=== PATIENT | male | born 1965 | race African-American/Black ===

== ENCOUNTER 2019-05-24 11:54 | Inpatient (IN) | payer OTHER ==
[2019-05-24 12:33] VITALS: BMI 25.9
--- NOTE | 2019-05-24 12:51 | HP ---
CIWA Score - Admission Criteria [facility] Guidelines: Admission for Medically Managed Detox: Requires at least one of the followin. CIWA greater than 12 2. Seizures within the past 24 hours 3. Delirium tremens within the past 24 hours 4. Hallucinations within the past 24 hours 5. Acute intervention needed for co occurring medical disorder 6. Acute intervention needed for co occurring psychiatric disorder 7. Severe withdrawal that cannot be handled at a lower level of care (continued vomiting, continued diarrhea, abnormal vital signs) requiring intravenous medication and/or fluids 8. Admitting History and Physical - Admission Chief Complaint: I was here yesterday and they did not have a rehab bed for me yesterday. History of Present Illness: 53 year old male with history of cannabis and cocaine use disorder, and alcohol use disorder. He has been in outpatient program, last one was [facility]. pt here for cocaine and cannabis use , reports 600 $ in 2 days , use daily x 18 months cannabis daily since age 19 tobacco : denies , quit 6 years ago etoh: 3 beers /day , denies blackouts , seizures , tremors , denies symptoms He has a plant operations manager that follows him regularly, monthly. He has implanted defibrillator and prior [place] due to LAD blockage. History Source: Patient Limitations to Obtaining History: No Limitations - Past Medical History Endocrine: Yes: Diabetes Mellitus Additional Past Medical History: CAD with 1 stent placed and defibrillator implanted 2 years later due to arrhythmia. - Past Surgical History Additional Past Surgical History: implanted defibrillator - Advance Directives Advance Directives: No: Living Will, Health Care Proxy, DNR - Smoking History Smoking history: Former smoker Have you smoked in the past 12 months: No - Alcohol/Substance Use Hx Alcohol Use: Yes (1-5 beers daily) Number of Drinks Daily: 5 Date of Last Use: 05/23/19 - Social History Usual Living Arrangement: Yes: Alone Do you think of yourself as: Straight/Heterosexual ADL: Independent Occupation: disabled and social security History of Recent Travel: No Admission [facility] Allergies/Adverse Reactions: Allergies Allergy/AdvReac Type Severity Reaction Status Date / Time No Known Allergies Allergy Verified 05/24/19 12:20 Exam Limitations: No Limitations - Ebola screening Have you traveled outside of the country in the last 21 days: No (N) Have you had contact with anyone from an Ebola affected area: No Have you been sick,other than usual withdrawal symptoms: No Do you have a fever: No - Review of Systems Constitutional: No Symptoms Reported EENT: reports: No Symptoms Reported Respiratory: reports: No Symptoms reported Cardiac: reports: No Symptoms Reported GI: reports: No Symptoms Reported : reports: No Symptoms Reported Musculoskeletal: reports: No Symptoms Reported Integumentary: reports: No Symptoms Reported Neuro: reports: No Symptoms reported Endocrine: reports: No Symptoms Reported Hematology: reports: No Symptoms Reported Psychiatric: reports: Judgement Intact, Mood/Affect Appropiate, Orientated x3 Other Systems: Reviewed and Negative Patient History - Patient Medical History Hx Anemia: No Hx Asthma: No Hx Chronic Obstructive Pulmonary Disease (COPD): No Hx Cancer: No Hx Cardiac Disorders: Yes (CAD with prior IN) Hx Congestive Heart Failure: No Hx Hypertension: No Hx Hypercholesterolemia: No Hx Pacemaker: No HX Cerebrovascular Accident: No Hx Seizures: No Hx Dementia: No Hx Diabetes: Yes Hx Gastrointestinal Disorders: No Hx Liver Disease: No Hx Genitourinary Disorders: No Hx Sexually Transmitted Disorders: No Hx Renal Disease (ESRD): No Hx Thyroid Disease: No Hx Human Immunodeficiency Virus (HIV): No Hx Hepatitis C: No Hx Depression: No Hx Suicide Attempt: No Hx Bipolar Disorder: No Hx Schizophrenia: No - Patient Surgical History Past Surgical History: No - PPD History Previous Implant?: Yes Documented Results: Negative w/proof Date: 05/18/17 Results: negative PPD to be Administered?: Yes - Smoking Cessation Smoking history: Former smoker Have you smoked in the past 12 months: No Hx Chewing Tobacco Use: No Initiated information on smoking cessation: No - Substances abused Alcohol Substance route: Oral Frequency: Daily Amount used: (3) 40oz. beer & 1/2 pint of vodka Age of first use: 13 Date of last use: 05/22/19 Crack Substance route: Smoking Frequency: Daily Amount used: $50 Age of first use: 52 Date of last use: 05/22/19 Marijuana/Hashish Substance route: Smoking Frequency: Daily Amount used: $20 Age of first use: 12 Date of last use: 05/22/19 Admission Physical Exam BHS - Vital Signs Vital Signs: Vital Signs - 24 hr 05/24/19 12:20 Temperature 98.2 F Pulse Rate 82 Respiratory 18 Rate Blood Pressure 104/63 - Physical General Appearance: Yes: No Apparent Distress HEENTM: Yes: EOMI, Hearing grossly Normal, Normal ENT Inspection, Normocephalic , Normal Voice, ROBERTO, Pharynx Normal, Tm's normal Respiratory: Yes: Chest Non-Tender, Lungs Clear, Normal Breath Sounds, No Respiratory Distress, No Accessory Muscle Use Neck: Yes: No masses,lesions,Nodules, Supple, Trachea in good position Breast: Yes: Within Normal Limits Cardiology: Yes: Regular Rhythm, Regular Rate, S1, S2 Abdominal: Yes: Normal Bowel Sounds, Non Tender, Flat, Soft Genitourinary: Yes: Within Normal Limits Back: Yes: Normal Inspection Musculoskeletal: Yes: full range of Motion, Gait Steady, Pelvis Stable Extremities: Yes: Normal Capillary Refill, Normal Inspection, Normal Range of Motion, Non-Tender Neurological: Yes: statement clerk II-XII NML intact, Fully Oriented, Alert, Motor Strength 5/5, Normal Mood/Affect, Normal Response Integumentary: Yes: Normal Color, Warm Lymphatic: Yes: Within Normal Limits - Diagnostic (1) Alcohol use disorder Current Visit: Yes Status: Acute (2) Cannabis dependence Current Visit: Yes Status: Chronic (3) Cocaine use Current Visit: Yes Status: Chronic Cleared for Admission S - Detox or Rehab [facility] Level of Care: Medically Supervised Screened but not Admitted - Documentation of Visit Screened but not Admitted: No Breathalyzer - Breathalyzer Breathalyzer: 0 Urine Drug Screen - Test Device Lot number: [id number] Expiration date: 01/11/21 - Control Is test valid?: Yes - Results Drug screen NEGATIVE: No Urine drug screen results: THC-Marijuana, JACINTO-Cocaine Inpatient Rehab Admission - Rehab Decision to Admit Inpatient rehab admission?: Yes - Initial Determination Are CD services needed?: Yes Free of communicable disease: Yes Not in need of hospitalization: Yes - Rehab Admission Criteria Previous failed treatment: Yes Poor recovery environment: Yes Comorbidities: Yes Lacks judgement: Yes Patient is meeting Inpatient Rehab admission criteria:: Yes
[2019-05-24] MEDS ORDERED: P-EPHED 60MG/TRIPROLIDI 2.5MG TABLET PO PRN (12:55)
[2019-05-24] MEDS ORDERED: LOPERAMIDE HCL 2 MG CAPSULE PO PRN (12:55)
[2019-05-24] MEDS ORDERED: guaiFENesin 200 MG/10 ML 10 ML UNIT-DOSE CUPS PO PRN (12:55)
[2019-05-24] MEDS ORDERED: MAGNESIUM CITRATE 300 ML BOTTLE PO PRN (12:55)
[2019-05-24] MEDS ORDERED: MAGNESIUM HYDROX 2400MG/30ML ORAL SUSPENSION 30 ML CUP PO PRN (12:55)
[2019-05-24] MEDS ORDERED: ACETAMINOPHEN 325 MG TABLET (FP) PO PRN (12:55)
[2019-05-24] MEDS ORDERED: MAG HYDROX/AL HYDROX/SIMETH 30 ML UNIT-DOSE CUP PO PRN (12:55)
[2019-05-24] MEDS ORDERED: IBUPROFEN 400 MG TABLET (FP) PO PRN (12:55)
[2019-05-24] MEDS ORDERED: FUROSEMIDE 20 MG TABLET (FP) PO PRN (12:56)
[2019-05-24] MEDS ORDERED: GABAPENTIN 400 MG CAPSULE (FP) PO PRN (12:56)
[2019-05-24] MEDS: INSULIN SLIDING SCALE (NOVOLOG) 1 VIAL SQ SCH ×2 (16:55→21:00)
[2019-05-24] MEDS: CARVEDILOL 25 MG TABLET (FP) PO SCH (21:03)
[2019-05-24] MEDS: THIAMINE HCL 100 MG TABLET (FP) PO SCH (21:03)
[2019-05-24] MEDS ORDERED: TRETINOIN TP SCH (22:00)
[2019-05-25] MEDS: INSULIN SLIDING SCALE (NOVOLOG) 1 VIAL SQ SCH ×4 (07:07→21:42)
[2019-05-25] MEDS: ASPIRIN COATED 81 MG TABLET.EC PO SCH (10:49)
[2019-05-25] MEDS: PRENATAL VITAMINS W/ FOLIC ACID TABLET (FP) PO SCH (10:49)
[2019-05-25] MEDS: ATORVASTATIN CA 40 MG TABLET (FP) PO SCH (10:49)
[2019-05-25] MEDS: SERTRALINE HCL 50 MG TABLET (FP) PO SCH (10:50)
[2019-05-25] MEDS: EPLERENONE 25 MG TABLET PO SCH (10:50)
[2019-05-25] MEDS: SACUBITRIL/VALSARTAN 97 MG-103 MG TABLET PO SCH ×2 (10:50→21:39)
[2019-05-25] MEDS: ERGOCALCIFEROL (VIT D2) 50,000 UNIT (1.25 MG) CAPSULE PO SCH (10:51)
[2019-05-25] MEDS: CARVEDILOL 25 MG TABLET (FP) PO SCH ×2 (10:51→21:37)
[2019-05-25] MEDS: PATIENT'S OWN MEDICATION (NON-FORMULARY) (Metformin Hcl [Glucophage] 1,000 MG) PO SCH (10:57)
[2019-05-25] MEDS ORDERED: PT OWN MED DRAWER 7, Y5N ONE ×2 (10:58→21:40)
--- NOTE | 2019-05-25 14:46 | EKG ---
Test Reason : Blood Pressure : / mmHG Vent. Rate : 064 BPM Atrial Rate : 064 BPM P-R Int : 178 ms QRS Dur : 096 ms QT Int : 404 ms P-R-T Axes : 071 073 -60 degrees QTc Int : 416 ms NORMAL SINUS RHYTHM T WAVE ABNORMALITY, CONSIDER INFEROLATERAL ISCHEMIA ABNORMAL ECG NO PREVIOUS ECGS AVAILABLE Confirmed by DAVID SWENSON MD ([id number]) on 05/25/2019 2:46:17 PM Referred By: Confirmed By:DAVID SWENSON MD
[2019-05-25] MEDS: THIAMINE HCL 100 MG TABLET (FP) PO SCH (21:37)
[2019-05-26] MEDS: PATIENT'S OWN MEDICATION (NON-FORMULARY) (Metformin Hcl [Glucophage] 1,000 MG) PO SCH (06:26)
[2019-05-26] MEDS: INSULIN SLIDING SCALE (NOVOLOG) 1 VIAL SQ SCH ×4 (06:54→21:02)
[2019-05-26] MEDS: ATORVASTATIN CA 40 MG TABLET (FP) PO SCH (09:09)
[2019-05-26] MEDS: SERTRALINE HCL 50 MG TABLET (FP) PO SCH (09:09)
[2019-05-26] MEDS: PRENATAL VITAMINS W/ FOLIC ACID TABLET (FP) PO SCH (09:09)
[2019-05-26] MEDS: ASPIRIN COATED 81 MG TABLET.EC PO SCH (09:09)
[2019-05-26] MEDS: EPLERENONE 25 MG TABLET PO SCH (09:10)
[2019-05-26] MEDS: CARVEDILOL 25 MG TABLET (FP) PO SCH ×2 (09:10→21:01)
[2019-05-26] MEDS: SACUBITRIL/VALSARTAN 97 MG-103 MG TABLET PO SCH ×2 (09:10→21:02)
[2019-05-26] MEDS ORDERED: INSULIN (NOVOLOG) ASPART 100 UNITS/ML 10ML VIAL ONE (12:06)
[2019-05-26] MEDS ORDERED: PT OWN MED DRAWER 7, Y5N ONE (19:39)
[2019-05-26] MEDS: THIAMINE HCL 100 MG TABLET (FP) PO SCH (21:02)
[2019-05-27] MEDS: INSULIN SLIDING SCALE (NOVOLOG) 1 VIAL SQ SCH ×4 (06:26→21:03)
[2019-05-27] MEDS: PATIENT'S OWN MEDICATION (NON-FORMULARY) (Metformin Hcl [Glucophage] 1,000 MG) PO SCH (06:26)
[2019-05-27] MEDS: ATORVASTATIN CA 40 MG TABLET (FP) PO SCH (09:15)
[2019-05-27] MEDS: SACUBITRIL/VALSARTAN 97 MG-103 MG TABLET PO SCH ×2 (09:15→21:02)
[2019-05-27] MEDS: ASPIRIN COATED 81 MG TABLET.EC PO SCH (09:15)
[2019-05-27] MEDS: PRENATAL VITAMINS W/ FOLIC ACID TABLET (FP) PO SCH (09:15)
[2019-05-27] MEDS: SERTRALINE HCL 50 MG TABLET (FP) PO SCH (09:15)
[2019-05-27] MEDS: CARVEDILOL 25 MG TABLET (FP) PO SCH ×2 (09:15→21:01)
[2019-05-27] MEDS: EPLERENONE 25 MG TABLET PO SCH (09:15)
[2019-05-27] MEDS: THIAMINE HCL 100 MG TABLET (FP) PO SCH (21:01)
[2019-05-27] MEDS: MELATONIN 5 MG TABLETS PO PRN (21:02)
[2019-05-28] MEDS: PATIENT'S OWN MEDICATION (NON-FORMULARY) (Metformin Hcl [Glucophage] 1,000 MG) PO SCH (06:13)
[2019-05-28] MEDS: INSULIN SLIDING SCALE (NOVOLOG) 1 VIAL SQ SCH ×4 (06:13→21:15)
[2019-05-28] MEDS: SERTRALINE HCL 50 MG TABLET (FP) PO SCH (10:00)
[2019-05-28] MEDS: CARVEDILOL 25 MG TABLET (FP) PO SCH ×2 (10:00→21:12)
[2019-05-28] MEDS: PRENATAL VITAMINS W/ FOLIC ACID TABLET (FP) PO SCH (10:00)
[2019-05-28] MEDS: SACUBITRIL/VALSARTAN 97 MG-103 MG TABLET PO SCH ×2 (10:00→21:13)
[2019-05-28] MEDS: ATORVASTATIN CA 40 MG TABLET (FP) PO SCH (10:00)
[2019-05-28] MEDS: ASPIRIN COATED 81 MG TABLET.EC PO SCH (10:00)
[2019-05-28] MEDS: EPLERENONE 25 MG TABLET PO SCH (10:00)
[2019-05-28] MEDS ORDERED: INSULIN (NOVOLOG) ASPART 100 UNITS/ML 10ML VIAL ONE (16:19)
[2019-05-28] MEDS: MELATONIN 5 MG TABLETS PO PRN (21:12)
[2019-05-28] MEDS: THIAMINE HCL 100 MG TABLET (FP) PO SCH (21:13)
[2019-05-29] MEDS: INSULIN SLIDING SCALE (NOVOLOG) 1 VIAL SQ SCH ×4 (07:07→21:26)
[2019-05-29] MEDS: PATIENT'S OWN MEDICATION (NON-FORMULARY) (Metformin Hcl [Glucophage] 1,000 MG) PO SCH (07:07)
[2019-05-29] MEDS ORDERED: PT OWN MED DRAWER 7, Y5N ONE (08:53)
[2019-05-29] MEDS: EPLERENONE 25 MG TABLET PO SCH (09:53)
[2019-05-29] MEDS: ATORVASTATIN CA 40 MG TABLET (FP) PO SCH (09:53)
[2019-05-29] MEDS: ASPIRIN COATED 81 MG TABLET.EC PO SCH (09:53)
[2019-05-29] MEDS: PRENATAL VITAMINS W/ FOLIC ACID TABLET (FP) PO SCH (09:53)
[2019-05-29] MEDS: SERTRALINE HCL 50 MG TABLET (FP) PO SCH (09:53)
[2019-05-29] MEDS: SACUBITRIL/VALSARTAN 97 MG-103 MG TABLET PO SCH ×2 (09:53→21:26)
[2019-05-29] MEDS: CARVEDILOL 25 MG TABLET (FP) PO SCH ×2 (09:53→21:26)
[2019-05-29] MEDS: THIAMINE HCL 100 MG TABLET (FP) PO SCH (21:27)
[2019-05-30] MEDS: INSULIN SLIDING SCALE (NOVOLOG) 1 VIAL SQ SCH ×4 (07:18→21:11)
[2019-05-30] MEDS: PATIENT'S OWN MEDICATION (NON-FORMULARY) (Metformin Hcl [Glucophage] 1,000 MG) PO SCH (07:18)
[2019-05-30] MEDS ORDERED: PT OWN MED DRAWER 7, Y5N ONE ×2 (09:32→19:18)
[2019-05-30] MEDS: ATORVASTATIN CA 40 MG TABLET (FP) PO SCH (10:09)
[2019-05-30] MEDS: CARVEDILOL 25 MG TABLET (FP) PO SCH ×2 (10:09→21:10)
[2019-05-30] MEDS: SACUBITRIL/VALSARTAN 97 MG-103 MG TABLET PO SCH ×2 (10:09→21:10)
[2019-05-30] MEDS: EPLERENONE 25 MG TABLET PO SCH (10:09)
[2019-05-30] MEDS: PRENATAL VITAMINS W/ FOLIC ACID TABLET (FP) PO SCH (10:09)
[2019-05-30] MEDS: ASPIRIN COATED 81 MG TABLET.EC PO SCH (10:09)
[2019-05-30] MEDS: SERTRALINE HCL 50 MG TABLET (FP) PO SCH (10:09)
--- NOTE | 2019-05-30 15:29 | PN ---
[facility] Progress Note Note: S:patient admitted to rehab. This is his first admission. PMHx: 53 year old male with history of cannabis and cocaine use disorder, and alcohol use disorder. He has been in outpatient program, last one was [facility]. pt here for cocaine and cannabis use , reports 600 $ in 2 days , use daily x 18 months cannabis daily since age 19 tobacco : denies , quit 6 years ago etoh: 3 beers /day , denies blackouts , seizures , tremors , denies symptoms He has a environmental health safety manager that follows him regularly, monthly. He has implanted defibrillator and prior [place] due to LAD blockage. O: No apparent distress A/P: Rehab for cocaine disorder. Labs ordered, problem list reviewed, home medications, and orders reviewed. Patient stable; will continue to monitor.
[2019-05-30] MEDS: THIAMINE HCL 100 MG TABLET (FP) PO SCH (21:10)
[2019-05-30 21:24] LABS: PH,URINE 7.5 (5.0-8.0); URINE APPEARANCE CLEAR; URINE BILIRUBIN NEGATIVE (NEGATIVE); URINE COLOR YELLOW; URINE GLUCOSE (UA) NEGATIVE (NEGATIVE); URINE KETONE NEGATIVE (NEGATIVE); URINE LEUK ESTERASE NEGATIVE (NEGATIVE); URINE NITRITE NEGATIVE (NEGATIVE); URINE PROTEIN NEGATIVE (NEGATIVE); URINE UROBILINOGEN 0.2 mg/dL (0.2-1.0)
[2019-05-31] MEDS: PATIENT'S OWN MEDICATION (NON-FORMULARY) (Metformin Hcl [Glucophage] 1,000 MG) PO SCH (06:22)
[2019-05-31] MEDS: INSULIN SLIDING SCALE (NOVOLOG) 1 VIAL SQ SCH ×2 (06:23→13:45)
[2019-05-31] MEDS ORDERED: PT OWN MED DRAWER 7, Y5N ONE (09:01)
[2019-05-31] MEDS: ATORVASTATIN CA 40 MG TABLET (FP) PO SCH (09:49)
[2019-05-31] MEDS: PRENATAL VITAMINS W/ FOLIC ACID TABLET (FP) PO SCH (09:49)
[2019-05-31] MEDS: ASPIRIN COATED 81 MG TABLET.EC PO SCH (09:49)
[2019-05-31] MEDS: CARVEDILOL 25 MG TABLET (FP) PO SCH ×2 (09:50→21:20)
[2019-05-31] MEDS: SERTRALINE HCL 50 MG TABLET (FP) PO SCH (09:50)
[2019-05-31] MEDS: EPLERENONE 25 MG TABLET PO SCH (09:50)
[2019-05-31] MEDS: SACUBITRIL/VALSARTAN 97 MG-103 MG TABLET PO SCH ×2 (09:50→21:20)
[2019-05-31] MEDS: THIAMINE HCL 100 MG TABLET (FP) PO SCH (21:20)
[2019-05-31] MEDS: MELATONIN 5 MG TABLETS PO PRN (21:20)
[2019-06-01] MEDS: INSULIN SLIDING SCALE (NOVOLOG) 1 VIAL SQ SCH (06:36)
[2019-06-01] MEDS: PATIENT'S OWN MEDICATION (NON-FORMULARY) (Metformin Hcl [Glucophage] 1,000 MG) PO SCH (06:36)
[2019-06-01] MEDS: CARVEDILOL 25 MG TABLET (FP) PO SCH ×2 (09:56→21:05)
[2019-06-01] MEDS: SERTRALINE HCL 50 MG TABLET (FP) PO SCH (09:56)
[2019-06-01] MEDS: PRENATAL VITAMINS W/ FOLIC ACID TABLET (FP) PO SCH (09:56)
[2019-06-01] MEDS: SACUBITRIL/VALSARTAN 97 MG-103 MG TABLET PO SCH ×2 (09:56→21:06)
[2019-06-01] MEDS: ASPIRIN COATED 81 MG TABLET.EC PO SCH (09:56)
[2019-06-01] MEDS: ATORVASTATIN CA 40 MG TABLET (FP) PO SCH (09:56)
[2019-06-01] MEDS: EPLERENONE 25 MG TABLET PO SCH (09:57)
[2019-06-01] MEDS: ERGOCALCIFEROL (VIT D2) 50,000 UNIT (1.25 MG) CAPSULE PO SCH (10:13)
[2019-06-01 14:05] LABS: HEMATOCRIT 41.6 % (35.4-49); HEMOGLOBIN 14.2 GM/dL (11.7-16.9); MCH 31.2 pg (25.7-33.7); MCHC 34.2 g/dl (32.0-35.9); MEAN PLT VOLUME 11.1 fl (7.5-11.1); PLATELET COUNT 165 K/MM3 (134-434); RBC 4.57 M/mm3 (4.00-5.60); RDW 13.9 % (11.9-15.9); WHITE BLOOD COUNT 4.4 K/mm3 (4.0-10.0)
[2019-06-01 14:17] LABS: ALBUMIN 3.9 g/dl (3.4-5.0); BILIRUBIN,TOTAL 0.4 mg/dL (0.2-1); BLOOD UREA NITROGEN 26.3 mg/dL (7-18); CALCIUM 9.4 mg/dL (8.5-10.1); CREATININE 1.1 mg/dL (0.55-1.3); POTASSIUM 4.9 mmol/L (3.5-5.1); TOT PROT 6.9 g/dl (6.4-8.2)
[2019-06-01] MEDS ORDERED: PT OWN MED DRAWER 7, Y5N ONE (18:48)
[2019-06-01] MEDS: MELATONIN 5 MG TABLETS PO PRN (21:06)
[2019-06-01] MEDS: THIAMINE HCL 100 MG TABLET (FP) PO SCH (21:06)
[2019-06-02] MEDS: PATIENT'S OWN MEDICATION (NON-FORMULARY) (Metformin Hcl [Glucophage] 1,000 MG) PO SCH (06:59)
[2019-06-02] MEDS: INSULIN SLIDING SCALE (NOVOLOG) 1 VIAL SQ SCH (06:59)
[2019-06-02] MEDS: SERTRALINE HCL 50 MG TABLET (FP) PO SCH (10:50)
[2019-06-02] MEDS: SACUBITRIL/VALSARTAN 97 MG-103 MG TABLET PO SCH ×2 (10:50→22:07)
[2019-06-02] MEDS: ASPIRIN COATED 81 MG TABLET.EC PO SCH (10:50)
[2019-06-02] MEDS: PRENATAL VITAMINS W/ FOLIC ACID TABLET (FP) PO SCH (10:50)
[2019-06-02] MEDS: ATORVASTATIN CA 40 MG TABLET (FP) PO SCH (10:50)
[2019-06-02] MEDS: EPLERENONE 25 MG TABLET PO SCH (10:51)
[2019-06-02] MEDS: CARVEDILOL 25 MG TABLET (FP) PO SCH ×2 (10:51→22:07)
[2019-06-02] MEDS: THIAMINE HCL 100 MG TABLET (FP) PO SCH (22:07)
[2019-06-02] MEDS: MELATONIN 5 MG TABLETS PO PRN (22:07)
[2019-06-03] MEDS: INSULIN SLIDING SCALE (NOVOLOG) 1 VIAL SQ SCH (07:02)
[2019-06-03] MEDS: PATIENT'S OWN MEDICATION (NON-FORMULARY) (Metformin Hcl [Glucophage] 1,000 MG) PO SCH (07:02)
[2019-06-03] MEDS: SACUBITRIL/VALSARTAN 97 MG-103 MG TABLET PO SCH ×2 (10:23→21:08)
[2019-06-03] MEDS: ASPIRIN COATED 81 MG TABLET.EC PO SCH (10:23)
[2019-06-03] MEDS: SERTRALINE HCL 50 MG TABLET (FP) PO SCH (10:23)
[2019-06-03] MEDS: CARVEDILOL 25 MG TABLET (FP) PO SCH ×2 (10:23→21:09)
[2019-06-03] MEDS: PRENATAL VITAMINS W/ FOLIC ACID TABLET (FP) PO SCH (10:23)
[2019-06-03] MEDS: ATORVASTATIN CA 40 MG TABLET (FP) PO SCH (10:24)
[2019-06-03] MEDS: EPLERENONE 25 MG TABLET PO SCH (10:24)
[2019-06-03] MEDS ORDERED: PT OWN MED DRAWER 7, Y5N ONE (19:17)
[2019-06-03] MEDS: THIAMINE HCL 100 MG TABLET (FP) PO SCH (21:07)
[2019-06-04] MEDS: PATIENT'S OWN MEDICATION (NON-FORMULARY) (Metformin Hcl [Glucophage] 1,000 MG) PO SCH (07:09)
[2019-06-04] MEDS: INSULIN SLIDING SCALE (NOVOLOG) 1 VIAL SQ SCH (07:10)
[2019-06-04] MEDS ORDERED: PT OWN MED DRAWER 7, Y5N ONE ×3 (09:02→22:21)
[2019-06-04] MEDS: ATORVASTATIN CA 40 MG TABLET (FP) PO SCH (10:12)
[2019-06-04] MEDS: PRENATAL VITAMINS W/ FOLIC ACID TABLET (FP) PO SCH (10:12)
[2019-06-04] MEDS: ASPIRIN COATED 81 MG TABLET.EC PO SCH (10:12)
[2019-06-04] MEDS: SACUBITRIL/VALSARTAN 97 MG-103 MG TABLET PO SCH ×2 (10:13→22:20)
[2019-06-04] MEDS: SERTRALINE HCL 50 MG TABLET (FP) PO SCH (10:13)
[2019-06-04] MEDS: EPLERENONE 25 MG TABLET PO SCH (10:13)
[2019-06-04] MEDS: CARVEDILOL 25 MG TABLET (FP) PO SCH ×2 (10:13→22:18)
[2019-06-04] MEDS: SENNOSIDES/DOCUSATE COMBO (SENNA PLUS) TABLET (UD) PO PRN (10:15)
[2019-06-04] MEDS: THIAMINE HCL 100 MG TABLET (FP) PO SCH (22:20)
[2019-06-05] MEDS: PATIENT'S OWN MEDICATION (NON-FORMULARY) (Metformin Hcl [Glucophage] 1,000 MG) PO SCH (06:12)
[2019-06-05] MEDS: INSULIN SLIDING SCALE (NOVOLOG) 1 VIAL SQ SCH (06:12)
[2019-06-05] MEDS: ASPIRIN COATED 81 MG TABLET.EC PO SCH (10:06)
[2019-06-05] MEDS: SENNOSIDES/DOCUSATE COMBO (SENNA PLUS) TABLET (UD) PO PRN (10:06)
[2019-06-05] MEDS: PRENATAL VITAMINS W/ FOLIC ACID TABLET (FP) PO SCH (10:06)
[2019-06-05] MEDS: SERTRALINE HCL 50 MG TABLET (FP) PO SCH (10:06)
[2019-06-05] MEDS: EPLERENONE 25 MG TABLET PO SCH (10:06)
[2019-06-05] MEDS: CARVEDILOL 25 MG TABLET (FP) PO SCH ×2 (10:06→21:31)
[2019-06-05] MEDS: SACUBITRIL/VALSARTAN 97 MG-103 MG TABLET PO SCH ×2 (10:06→21:31)
[2019-06-05] MEDS: ATORVASTATIN CA 40 MG TABLET (FP) PO SCH (10:06)
[2019-06-05] MEDS: MENTHOL/PHENOL 1 EACH UD MM PRN ×2 (11:00→15:32)
--- NOTE | 2019-06-05 12:37 | DS ---
[facility] Rehab Discharge Summary - [facility] Rehab Discharge Summary Admission Date: 05/24/19 Discharge Date: 06/06/19 - History Present History: Alcohol dependence, Cannabis dependence Pertinent Past History: 53 year old male with history of cannabis and cocaine use disorder, and alcohol use disorder. He has been in outpatient program, last one was [facility]. pt here for cocaine and cannabis use , reports 600 $ in 2 days , use daily x 18 months cannabis daily since age 19 tobacco : denies , quit 6 years ago etoh: 3 beers /day , denies blackouts , seizures , tremors , denies symptoms He has a health care analyst that follows him regularly, monthly. He has implanted defibrillator and prior [place] due to LAD blockage. - Discharge Physical Exam Vital Signs: Vital Signs Temperature 97.4 F L 06/05/19 07:05 Pulse Rate 65 06/05/19 09:30 Respiratory Rate 18 06/05/19 09:30 Blood Pressure 117/59 L 06/05/19 09:30 O2 Sat by Pulse Oximetry (%) Pertinent Admission Physical Exam Findings: General Appearance: No Apparent Distress HEENTM: Normocephalic, Respiratory: Lungs Clear, Neck: Supple, Trachea in good position Cardiology: , S1, S2 Abdominal: +Bowel Sounds, Non Tender, Flat, Soft Musculoskeletal: full range of Motion, Gait Steady, Pelvis Stable Neurological: distribution agent II-XII NML intact, - Treatment Discharge Condition: Outpatient referral accepted (Medically stable for discharge.Patient will continue with [facility] after discharge.) Hospital Course: Patient attended groups, has 1:1 with counselor, was adherent to his medical regimen and treatment plan. He had no acute or urgent medical problems while in rehab. - Medication Discharge Medications: Ambulatory Orders Eplerenone [Inspra] 25 mg PO DAILY 05/23/19 Sertraline HCl [Zoloft] 100 mg PO DAILY 05/23/19 Tretinoin [Retin-A] 15 gm TP HS 05/23/19 Ammonium Lactate Cream [Lac-Hydrin 12% Cream -] 1 applic TP BID PRN #1 tube Aspirin Coated [Ecotrin -] 81 mg PO DAILY #14 tablet.ec 06/05/19 Atorvastatin Calcium 40 mg PO DAILY #14 tablet 06/05/19 Carvedilol [Coreg -] 25 mg PO BID #30 tablet 06/05/19 Ergocalciferol (Vitamin D2) [Vitamin D2] 50,000 unit PO WEEKLY #1 capsule Furosemide [Lasix -] 20 mg PO DAILY PRN #14 tablet 06/05/19 Gabapentin [Neurontin -] 400 mg PO HS PRN #14 capsule 06/05/19 Metformin HCl [Glucophage] 1,000 mg PO DAILY #14 tablet 06/05/19 Sacubitril/Valsartan [Entresto 97 mg-103 mg Tablet] 1 tab PO DAILY #14 tablet Sennosides/Docusate Sodium [Senna Plus 8.6-50 mg Softgel] 1 each PO PRN PRN #14 capsule 06/05/19 - Medication-Assisted Treatment (MAT) Medication-Assisted Treatment (MAT): No - Discharge Instructions Diet, activity, other medical instructions: Diet: as tolerated Activity: as tolerated Other medical instructions: Please follow up with aftercare referral. - Diagnosis (1) Alcohol use disorder Current Visit: Yes Status: Chronic - Follow-up Referral Minutes to complete discharge: 20 - AMA Did Patient Leave Against Medical Advice: No
[2019-06-05] MEDS ORDERED: PT OWN MED DRAWER 7, Y5N ONE (19:27)
[2019-06-05] MEDS: THIAMINE HCL 100 MG TABLET (FP) PO SCH (21:31)
[2019-06-05] MEDS: MELATONIN 5 MG TABLETS PO PRN (21:31)
[2019-06-06] MEDS ORDERED: PT OWN MED DRAWER 7, Y5N ONE (05:06)
[2019-06-06 05:53] VITALS: BP 118/61; PULSE 55; TEMP 97.6
[2019-06-06] MEDS: INSULIN SLIDING SCALE (NOVOLOG) 1 VIAL SQ SCH (06:07)
[2019-06-06] MEDS: PATIENT'S OWN MEDICATION (NON-FORMULARY) (Metformin Hcl [Glucophage] 1,000 MG) PO SCH (06:07)
== END 2019-06-06 08:47 | disposition home or self-care (01) | DRG 895 ==
LOC: YASAS 11:54 → Y3W 13:20
PROVIDERS: ADMIT Neuromusculoskeletal Medicine & OMM; ATTEND Neuromusculoskeletal Medicine & OMM
PROC: HZ42ZZZ Group Counseling for Substance Abuse Treatment, Cognitive-Behavioral (ICD-10-PCS; principal; 2019-05-24)
DX: F10.20 Alcohol dependence, uncomplicated (principal); F14.20 Cocaine dependence, uncomplicated; F12.20 Cannabis dependence, uncomplicated; E11.9 Type 2 diabetes mellitus without complications; I25.10 Atherosclerotic heart disease of native coronary artery without angina pectoris; I25.2 Old myocardial infarction; Z87.891 Personal history of nicotine dependence; Z95.810 Presence of automatic (implantable) cardiac defibrillator; Z95.5 Presence of coronary angioplasty implant and graft; Z79.84 Long term (current) use of oral hypoglycemic drugs
CPT/HCPCS: 36415; 80053; 81003; 82962; 85027; 86593; 93005; 93010